=== PATIENT | female | born 1980 | race Caucasian/White ===

== ENCOUNTER 2016-07-14 08:00 | Inpatient (IN) | payer OTHER ==
[~2016-07-14] VITALS: Ht 170.2 cm; Wt 78.0 kg
[~2016-07-14 08:00] MED LIST: DEXAMETHASONE SOD PHOS 4 MG/ML VIAL IVP ONE; EPHEDrine SULFATE 50 MG/ML VIAL IM ONE; KETOROLAC TROMETHAMINE 60 MG/2 ML VIAL IM ONE; ONDANSETRON HCL 4 MG/2 ML VIAL IVP ONE; OXYTOCIN 10 UNITS/ML VIAL IM ONE; PREN1TAB52 PO; PREN1TAB80 PO
[2016-07-14] MEDS ORDERED: RINGERS SOLUTION,LACTATED 1,000 ML IV ONE (08:23)
[2016-07-14] MEDS ORDERED: CITRIC ACID/SODIUM CITRATE 30 ML SOLUTION UDCUP PO ONE (08:30)
[2016-07-14] MEDS ORDERED: METOCLOPRAMIDE HCL 5 MG/ML 2 ML VIAL IVP ONE (08:30)
[2016-07-14] MEDS ORDERED: MORPHINE SULFATE/PF 0.5 MG/ML 10 ML AMP ONE (08:42)
[2016-07-14] MEDS ORDERED: MIDAZOLAM HCL 2 MG/2 ML VIAL ONE (08:42)
[2016-07-14] MEDS ORDERED: FentaNYL CITRATE-PF 100 MCG/2 ML VIAL ONE (08:43)
[2016-07-14 08:49] LABS: BASOPHILS % (AUTO) 0.3 % (0.0-2.0); HEMATOCRIT 34.4 % (36-46); HEMOGLOBIN 11.7 g/dL (12.0-16.0); LYMPHOCYTES # (AUTO) 1.3 K/uL (1.0-4.8); LYMPHOCYTES % (AUTO) 20.7 % (22.0-44.0); MEAN CORPUSCULAR HEMOGLOBIN 30.5 pg (26.0-34.0); MEAN CORPUSCULAR HGB CONC 33.9 G/dL (31.0-37.0); MEAN CORPUSCULAR VOLUME 90 fL (80-100); MONOCYTES # (AUTO) 0.6 K/uL (0.1-1.0); MONOCYTES % (AUTO) 9.6 % (2.0-9.0); NEUTROPHILS # (AUTO) 4.4 K/uL (1.8-7.7); NEUTROPHILS % (AUTO) 68.4 % (40.0-70.0); RED BLOOD CELL COUNT(AUTO) 3.82 MIL/uL (4.00-5.20); RED CELL DISTRIBUTION WIDTH 13.7 % (11.5-14.5); WHITE BLOOD COUNT (AUTO) 6.5 K/uL (4.5-11.0)
[2016-07-14 09:25] VITALS: BP 113/72
[2016-07-14] MEDS ORDERED: INFLUENZA VIRUS VACCINE QVS 2016-17 (3YR+)/PF 60 MCG/0.5 ML SYRINGE IM ONE (09:45)
[2016-07-14] MEDS ORDERED: DiphenhydrAMINE HCL 50 MG/ML VIAL IVP PRN ×2 (11:00)
[2016-07-14] MEDS ORDERED: FentaNYL CITRATE-PF 100 MCG/2 ML VIAL IVP PRN ×2 (11:00)
[2016-07-14] MEDS ORDERED: MORPHINE SULFATE 4 MG/ML SYRINGE IVP PRN (11:00)
[2016-07-14] MEDS ORDERED: ONDANSETRON HCL 4 MG/2 ML VIAL IVP PRN ×2 (11:00)
[2016-07-14] MEDS ORDERED: MORPHINE SULFATE 2 MG/ML SYRINGE IVP PRN (11:00)
[2016-07-14] MEDS ORDERED: LANOLIN 7 GM OINTMENT TP PRN (11:30)
[2016-07-14] MEDS ORDERED: ACETAMINOPHEN/CODEINE 300-30 MG TABLET PO PRN (11:30)
[2016-07-14] MEDS: DEXTROSE 5%-0.45% SODIUM CHL 1,000 ML IV SCH ×2 (16:31→22:05)
[2016-07-14] MEDS: NALBUPHINE HCL 10 MG/ML VIAL IVP SCH ×2 (16:32→22:04)
[2016-07-14] MEDS: KETOROLAC TROMETHAMINE 30 MG/ML VIAL IVP SCH ×2 (17:03→23:01)
[2016-07-15] MEDS: DEXTROSE 5%-0.45% SODIUM CHL 1,000 ML IV SCH ×2 (02:43→06:23)
[2016-07-15] MEDS ORDERED: IBUPROFEN 800 MG TABLET PO SCH (03:00)
[2016-07-15] MEDS: NALBUPHINE HCL 10 MG/ML VIAL IVP SCH (04:00)
[2016-07-15] MEDS: KETOROLAC TROMETHAMINE 30 MG/ML VIAL IVP SCH (05:04)
[2016-07-15] MEDS: MAGNESIUM HYDROXIDE SUSPENSION 30 ML UDCUP PO SCH ×2 (09:33→21:10)
[2016-07-15] MEDS: ACETAMINOPHEN/CODEINE 300-30 MG TABLET PO PRN ×2 (09:33→18:16)
[2016-07-15] MEDS: IBUPROFEN 800 MG TABLET PO SCH ×2 (12:45→18:53)
[2016-07-16] MEDS: IBUPROFEN 800 MG TABLET PO SCH ×4 (00:51→18:24)
[2016-07-16] MEDS: OXYGEN THERAPY IH SCH ×4 (08:00→20:00)
[2016-07-16] MEDS: MAGNESIUM HYDROXIDE SUSPENSION 30 ML UDCUP PO SCH ×2 (09:49→21:00)
[2016-07-16] MEDS: ACETAMINOPHEN/CODEINE 300-30 MG TABLET PO PRN (10:22)
[2016-07-17] MEDS: IBUPROFEN 800 MG TABLET PO SCH ×3 (00:17→11:34)
[2016-07-17] MEDS: OXYGEN THERAPY IH SCH ×2 (08:00)
[2016-07-17] MEDS ORDERED: IBUP-1547 PO (08:58)
[2016-07-17] MEDS ORDERED: DSS100 PO (08:58)
[2016-07-17] MEDS: MAGNESIUM HYDROXIDE SUSPENSION 30 ML UDCUP PO SCH (09:00)
[2016-07-17] MEDS ORDERED: ACET1TAB12 PO (09:04)
== END 2016-07-17 11:50 | disposition home or self-care (01) | DRG 766 ==
LOC: OBSVTOIN 08:00 → 4S 08:00
PROVIDERS: ADMIT Obstetrics & Gynecology; ATTEND Obstetrics & Gynecology
PROC: 10D00Z1 Extraction of Products of Conception, Low, Open Approach (ICD-10-PCS; principal; 2016-07-14)
PROC: 3E0234Z Introduction of Serum, Toxoid and Vaccine into Muscle, Percutaneous Approach (ICD-10-PCS; 2016-07-14)
DX: O32.8XX0 Maternal care for other malpresentation of fetus, not applicable or unspecified (principal); O76 Abnormality in fetal heart rate and rhythm complicating labor and delivery; O09.523 Supervision of elderly multigravida, third trimester; Z23 Encounter for immunization; Z3A.39 39 weeks gestation of pregnancy; Z37.0 Single live birth
CPT/HCPCS: 86850; 86900; 86901; 87081; 90471; J0690; J1100; J1885; J2250; J2270; J2274; J2300; J2405; J2590; J2765; J3010; J3490; J7120